=== PATIENT | female | born 1990 | race Caucasian/White ===

== ENCOUNTER → 2021-07-11 08:33 | Outpatient (CLI) | payer BC, SELFPAY ==
[2021-07-11 10:03] LABS: Add Manual Diff / Slide Review NO; Basophils Absolute Auto 0 /uL (0-100); Basophils Percent Auto 0.8 % (0-2); Eosinophils Absolute Auto 100 /uL (0-450); Eosinophils Percent Auto 2.1 % (2-4); Hematocrit 41.5 % (36-46); Hemoglobin 14.7 g/dL (12.0-16.0); Lymphocytes Absolute Auto 1700 /uL (1100-4500); Lymphocytes Percent Auto 39.8 % (25-40); Mean Corpuscular HGB Conc 35.4 % (30-36); Mean Corpuscular Hemoglobin 32.3 PG (26-34); Mean Corpuscular Volume 91.3 fL (80-100); Monocytes Absolute Auto 400 /uL (0-900); Monocytes Percent Auto 8.5 % (3-14); Neutrophils Absolute Auto 2000 /uL (1500-7000); Neutrophils Percent Auto 48.8 % (50-75); Platelet Count 217 X10^3/uL (150-400); Red Blood Cell Count 4.55 X10^6/uL (4.0-5.2); Red Cell Distribution Width 12.6 % (11.6-14.8); White Blood Cell Count 4.2 X10^3/uL (4.5-11.0)
[2021-07-11 10:25] LABS: Alanine Aminotransferase 19 IU/L (<35); Albumin 4.6 g/dL (3.5-5.0); Albumin Globulin Ratio 1.7 (1.0-2.8); Alkaline Phosphatase 54 U/L (38-126); Aspartate Aminotransferase 23 IU/L (14-36); BUN Creatinine Ratio 22.2 (6-22); Bilirubin Total 0.6 mg/dL (0.2-1.3); Blood Urea Nitrogen 16 mg/dL (7-17); Calcium 9.9 mg/dL (8.4-10.2); Carbon Dioxide 30 mmol/L (22-32); Chloride 103 mmol/L (98-107); Estimated Glomerular Filt Rate > 60.0 mL/min (>60); Globulin 2.7 g/dL (1.7-4.1); Glucose 92 mg/dL (70-100); HEMOLYSIS < 15 (0-50); Potassium 4.2 mmol/L (3.4-5.1); Sodium 139 mmol/L (137-145); Total Protein 7.3 g/dL (6.3-8.2)
[2021-07-11 10:47] LABS: TSH w/ Reflex to FT4 2.59 uIU/mL (0.47-4.68)
== END ==
PROVIDERS: PCP Family Medicine; Referring Provider Family Medicine; Visit Provider Family Medicine
DX: R59.9 Enlarged lymph nodes, unspecified (principal)
CPT/HCPCS: 36415; 80053; 84443; 85025

== ENCOUNTER 2022-09-23 16:53 | Emergency (ER) | payer BC, SELFPAY ==
[2022-09-23 17:05] VITALS: BP 134/78; PULSE 71; RESP 16; TEMP 36.4; O2SAT 98; BMI 22.4
--- NOTE | 2022-09-23 17:15 | DI.US.S_ITS ---
PROCEDURE: US OB <= 14 WEEKS FETUS INDICATIONS: ABDOMEN PAIN 6 WEEKS OUTSIDE/PRIOR DATING DATA: Last menstrual period (LMP): Not available. LMP-based estimated date of delivery (BATSHEVA): Not available e. TECHNIQUE: Real-time scanning was performed of the fetus and maternal pelvic organs, with image documentation. Endovaginal scanning was also performed to better visualize the fetus and maternal ovaries. COMPARISON: None. FINDINGS: Endometrium is thickened. There is a possible sac measuring 0.3 x 0.2 x 0.4 cm within the endometrial cavity. Maternal organs: Within the left ovary, there is a thick-walled cyst measuring 2.2 x 2.0 x 2.0 cm. Right ovary is unremarkable. IMPRESSION: 1. Thickened endometrium. There is a possible small gestation sac within the endometrial cavity. No pole. Please correlate with quantitative beta HCG. 2. A 2.2 x 2.0 x 2.0 cm cyst in the left ovary, most likely a corpus luteal cyst but ectopic cannot be excluded. Recommend clinical follow-up and imaging follow-up as clinically indicated. We strive to produce accurate, complete, and clear reports of imaging services. To assist us in improving patient care, this report was composed using standard report templates and voice recognition software. Therefore, it may contain abnormal punctuation, insertions and/or omissions. Occasional wrong-word or sound-alike substitutions may occur. Though we review the report and make efforts to correct it, we do recommend that the report be read carefully in proper context to recognize any text inaccuracies. Dictated by: Sachin Simpson M.D. on 09/23/2022 at 19:07 Approved by: Sachin Simpson M.D. on 09/23/2022 at 19:12
[2022-09-23 18:53] LABS: Add Manual Diff / Slide Review NO; Basophils Absolute Auto 0 /uL (0-100); Basophils Percent Auto 0.6 % (0-2); Eosinophils Absolute Auto 100 /uL (0-450); Hematocrit 41.3 % (36-46); Hemoglobin 14.4 g/dL (12.0-16.0); Lymphocytes Absolute Auto 2300 /uL (1100-4500); Lymphocytes Percent Auto 30.7 % (25-40); Mean Corpuscular HGB Conc 34.9 % (30-36); Mean Corpuscular Hemoglobin 31.9 PG (26-34); Mean Corpuscular Volume 91.4 fL (80-100); Monocytes Absolute Auto 700 /uL (0-900); Monocytes Percent Auto 8.9 % (3-14); Neutrophils Absolute Auto 4500 /uL (1500-7000); Neutrophils Percent Auto 58.8 % (50-75); Platelet Count 220 X10^3/uL (150-400); Red Blood Cell Count 4.52 X10^6/uL (4.0-5.2); Red Cell Distribution Width 12.6 % (11.6-14.8); White Blood Cell Count 7.6 X10^3/uL (4.5-11.0)
[2022-09-23 19:08] LABS: Alanine Aminotransferase 42 IU/L (<35); Albumin 4.7 g/dL (3.5-5.0); Albumin Globulin Ratio 1.6 (1.0-2.8); Alkaline Phosphatase 69 U/L (38-126); Aspartate Aminotransferase 29 IU/L (14-36); BUN Creatinine Ratio 20.6 (6-22); Bilirubin Total 0.3 mg/dL (0.2-1.3); Blood Urea Nitrogen 13 mg/dL (7-17); Calcium 9.2 mg/dL (8.4-10.2); Carbon Dioxide 27 mmol/L (22-32); Chloride 101 mmol/L (98-107); Estimated Glomerular Filt Rate > 60 mL/min (>60); Glucose 92 mg/dL (70-100); HEMOLYSIS < 15 (0-50); Potassium 4.1 mmol/L (3.4-5.1); Sodium 137 mmol/L (137-145); Total Protein 7.7 g/dL (6.3-8.2)
[2022-09-23 19:24] LABS: HCG Quantitative /Beta subunit 842.3 mIU/mL
--- NOTE | 2022-09-23 22:00 | ED_ITS ---
HPI - General Adult General Chief complaint: OB/Uterine Contractions Stated complaint: 6 WEEKS STOMACH PAIN HARDNESS SENT BY OB Time Seen by Provider: 09/23/22 21:43 Source: patient Mode of arrival: Family Vehicle Limitations: no limitations History of Present Illness HPI narrative: 32-year-old otherwise healthy at approximately 6 weeks EGA based on last menstrual period who is here for evaluation of stomach pain. She is not having any vaginal bleeding. No urinary symptoms. No change in bowel habits. She is yet to see OB during this . She would her initial positive test 2 weeks ago. No fevers. She was told to come to the emergency department after contacting an Ob Related Data Home Medications Medication Instructions Recorded Confirmed magnesium glycinate-mag oxide 240 mg PO .HS 09/19/22 09/19/22 prenat.vits,jeanmarie,vgs-svms-dskwe 1 tab PO DAILY 09/19/22 09/19/22 Allergies Allergy/AdvReac Type Severity Reaction Status Date / Time No Known Drug Allergies Allergy Unverified 09/23/22 17:08 Review of Systems Constitutional Constitutional: Reports system reviewed and no additional complaints, except as documented Cardiovascular Cardiovascular: Reports system reviewed and no additional complaints, except as documented Gastrointestinal Gastrointestinal: Reports system reviewed and no additional complaints, except as documented Genitourinary Genitourinary: Reports system reviewed and no additional complaints, except as documented Hematologic/Lymphatic On Anticoagulants: No Patient History Medical History Acne (~2006) Family history of breast cancer Painful menstrual periods (~2018) Surgical History (Updated 09/19/22 @ 14:12 by Augusta Ingram RN) Anesthesia History of breast lump/mass excision (~2016) [place] teeth extracted Family History (Updated 09/19/22 @ 14:15 by Augusta Ingram RN) Mother Skin cancer Grandfather Melanoma Grandmother Melanoma Breast cancer Grandmother Cancer Social History marital status: number of children: 0 household members: spouse lives independently: Yes caregiver/support person: No housing: house pets and animals: Yes (1 dog; aware of precautions) education level: college (associate's degree) occupational status: employed current occupational exposures/hazards: Yes (discussed precautions) special mauri needs: No travel history: recent (domestic only) seatbelt use: always helmet use: Yes water heater temp set < 120 deg: Yes working smoke detector in home: Yes fire extinguisher in home: No carbon monox detector in home: Yes firearms in home: No do you feel safe at home: Yes Smoking Status: Never smoker second hand exposure: No alcohol intake: former (2-4/week when not ) substance use type: does not use during the past year weight has: remained stable well-balanced diet: daily or most days daily servings fruits/ve or more times/day caffeine: No Type(s) of exercise: walking, bicycling, weight lifting, resistance training and running frequency: daily Smoking Status: Never smoker Substance Use Type: does not use Exam Initial Vital Signs Initial Vital Signs: Vital Signs Temperature 97.6 F 09/23/22 17:05 Pulse Rate 71 09/23/22 17:05 Respiratory Rate 16 09/23/22 17:05 Blood Pressure 134/78 09/23/22 17:05 Pulse Oximetry 98 09/23/22 17:05 Oxygen Delivery Method Room Air 09/23/22 17:05 Const General: cooperative HENMT Head: normal to inspection and normocephalic Resp Effort & Inspection: normal respiratory effort Cardio Rate: regular rate GI Inspection: non-distended Neuro General: patient alert, patient awake and moves all extremities Course Orders Ordered: ED Orders 09/23/22 17:15 US OB <= 14 weeks fetus Stat 09/23/22 18:40 ABO RH Type Stat Complete Blood Count AUTO DIFF Stat Comprehensive Metabolic Panel Stat HCG Quantitative /Beta subunit Stat Vital Signs Vital signs: Vital Signs - 8 hr 09/23/22 22:18 Pulse Rate 72 Respiratory Rate 16 Blood Pressure 133/76 Pulse Oximetry 99 Oxygen Delivery Method Room Air Medical Decision Making Medical Records Medical records reviewed: Yes I reviewed the patient's medical records. Lab Data Lab results reviewed: Yes I reviewed the patient's lab results. 09/23/22 18:40 09/23/22 18:40 Labs: Lab Results 09/23/22 09/23/22 09/23/22 Range/Units 18:40 18:40 18:40 WBC 7.6 (4.5-11.0) X10^3/uL RBC 4.52 (4.0-5.2) X10^6/uL Hgb 14.4 (12.0-16.0) g/dL Hct 41.3 (36-46) % MCV 91.4 (80-100) fL MCH 31.9 (26-34) PG MCHC 34.9 (30-36) % RDW 12.6 (11.6-14.8) % Plt Count 220 (150-400) X10^3/uL Neut % (Auto) 58.8 (50-75) % Lymph % (Auto) 30.7 (25-40) % [place] % (Auto) 8.9 (3-14) % Eos % (Auto) 1.0 L (2-4) % Baso % (Auto) 0.6 (0-2) % Neut # (Auto) 4500 (2533-6005) /uL Lymph # (Auto) 2300 (2251-0155) /uL [place] # (Auto) 700 (0-900) /uL Eos # (Auto) 100 (0-450) /uL Baso # (Auto) 0 (0-100) /uL Sodium 137 (137-145) mmol/L Potassium 4.1 (3.4-5.1) mmol/L Chloride 101 (98-107) mmol/L Carbon Dioxide 27 (22-32) mmol/L BUN 13 (7-17) mg/dL Creatinine 0.63 (0.52-1.04) mg/dL Estimated GFR > 60 (>60) mL/min BUN/Creatinine Ratio 20.6 (6-22) Glucose 92 (70-100) mg/dL Calcium 9.2 (8.4-10.2) mg/dL Total Bilirubin 0.3 (0.2-1.3) mg/dL AST 29 (14-36) IU/L ALT 42 H (<35) IU/L Alkaline Phosphatase 69 (38-126) U/L Total Protein 7.7 (6.3-8.2) g/dL Albumin 4.7 (3.5-5.0) g/dL Globulin 3.0 (1.7-4.1) g/dL Albumin/Globulin Ratio 1.6 (1.0-2.8) HCG, Quant 842.3 mIU/mL Blood Type O Negative Urine Dip Bedside Urine Glucose Negative Bedside Urine Bilirubin - Negative Bedside Urine Ketone - Negative Urine Specific [place] 1.015 Bedside Urine Occult Blood - Negative Bedside Urine pH 7.5 Bedside Urine Protein - Negative Bedside Urine Urobilinogen - Negative Bedside Urine Nitrite - Negative Bedside Urine Leukocytes - Negative Esterase Point of care testing: Urine Dip Bedside Urine Glucose Negative Bedside Urine Bilirubin - Negative Bedside Urine Ketone - Negative Urine Specific [place] 1.015 Bedside Urine Occult Blood - Negative Bedside Urine pH 7.5 Bedside Urine Protein - Negative Bedside Urine Urobilinogen - Negative Bedside Urine Nitrite - Negative Bedside Urine Leukocytes - Negative Esterase Imaging Data US - OB: Radiologist's Impression: PROCEDURE:? US OB <= 14 WEEKS FETUS ? INDICATIONS:? ABDOMEN PAIN 6 WEEKS ? OUTSIDE/PRIOR DATING DATA:? Last menstrual period (LMP):? Not available.? LMP-based estimated date of delivery (BATSHEVA):? Not available e.? ? TECHNIQUE:? Real-time scanning was performed of the fetus and maternal pelvic organs, with image documentation.? Endovaginal scanning was also performed to better visualize the fetus and maternal ovaries.? ? COMPARISON:? None. ? FINDINGS:? ? Endometrium is thickened.? There is a possible sac measuring 0.3 x 0.2 x 0.4 cm within the endometrial cavity. ? Maternal organs:? Within the left ovary, there is a thick-walled cyst measuring 2.2 x 2.0 x 2.0 cm.? Right ovary is unremarkable. ? ? IMPRESSION:? ? 1.? Thickened endometrium.? There is a possible small gestation sac within the endometrial cavity.? No pole.? Please correlate with quantitative beta HCG. 2. A 2.2 x 2.0 x 2.0 cm cyst in the left ovary, most likely a corpus luteal cyst but ectopic cannot be excluded.? Recommend clinical follow-up and imaging follow-up as clinically indicated. MDM Narrative Medical decision making narrative: Patient is Rh negative however is not having any vaginal bleeding today so we will hold on RhoGAM. Patient's hCG quantitative is in the mid 800s. The ultrasound does not show any definitive intrauterine which is not surprising given the quantitative results. I am concerned that she had a positive test 2 weeks ago and yet the quantitative level is only in the mid 800s today. I had a long discussion with the patient regarding her workup here in the emergency department. Informed. That we are unsure given her presentation today if she is early on in the and the quantitative level is increasing or if she is in the process of an incomplete miscarriage. Informed her that she needed a repeat lab draw in 48 hours. We also discussed the possibility of an ectopic given the lack of a definitive intrauterine seen on the ultrasound today. She was given specific return instructions for this. She is vitamins at home. She will contact the OB provider that she was going to see for this to see if she can get into have the repeat lab draw done through them or she can not she will return to the emergency department for this. Discharge Plan Departure Patient Disposition: Home Clinical Impression: Abdominal pain during Instructions: DI for -- Discomforts and Remedies Activity Restrictions/Additional Instructions: Based on your blood work and ultrasound today you do require a follow-up on T nelson. You can contact your OB provider for this or return to the emergency department. If prior to that your pain gets worse you develop fevers or your bleeding multiple pads an hour for multiple hours in a row you do need to return to the emergency department for further evaluation. Prescriptions: No Action prenat.vits,jeanmarie,dyf-xyye-whiki Tablet 1 tab PO DAILY magnesium glycinate-mag oxide 120 mg magnesium capsule 240 mg PO .HS Referrals: Nacho Guzman MD [Primary Care Provider] - Stand Alone Forms: Patient Portal/API
[2022-09-23 22:18] VITALS: BP 133/76; PULSE 72; RESP 16; O2SAT 99
== END 2022-09-23 22:18 | disposition home or self-care (01) ==
PROVIDERS: Emergency Medicine; Emergency Provider Emergency Medicine; PCP Family Medicine
DX: O26.891 Other specified pregnancy related conditions, first trimester (principal); R10.9 Unspecified abdominal pain; Z3A.01 Less than 8 weeks gestation of pregnancy
CPT/HCPCS: 76801; 80053; 81003; 84702; 85025; 86900; 86901; 99281; 99284

== ENCOUNTER → 2022-09-25 12:52 | Outpatient (CLI) | payer BC, SELFPAY ==
[2022-09-25 14:05] LABS: HCG Quantitative /Beta subunit 1073.4 mIU/mL
== END ==
PROVIDERS: PCP Family Medicine; Referring Provider Family Medicine; Visit Provider Family Medicine
DX: O26.899 Other specified pregnancy related conditions, unspecified trimester (principal); R10.9 Unspecified abdominal pain
CPT/HCPCS: 36415; 84702

== ENCOUNTER → 2022-09-27 07:24 | Outpatient (CLI) | payer BC, SELFPAY ==
[2022-09-27 10:49] LABS: HCG Quantitative /Beta subunit 1722.7 mIU/mL
--- NOTE | 2022-10-06 22:08 | PM.CALLCOV.1 ---
Call Coverage Note Note Date of Patient Contact: 10/06/22 Time of Patient Contact: 17:27 Narrative of Care Provided: Shayy called to report that she has been having heavy bleeding and cramping for about 2 hours. Has seen clots and tissue pass, believes she's having a miscarriage at 7w6d. Tearful discussing. Has a viability ultrasound scheduled for . Reports that she has Rh negative blood typing. Asked if it's okay to use tampons. IUP at 7w6d Active SAB Rh negative Review normal versus abnormal bleeding with miscarriage and when to return call to this provider giovanna MOLINAN. Recommend continuing with pads to prevent infection and monitor bleeding. Okay to take ibuprofen and acetaminophen for pain management; reviewed dosing. Recommend calling Dr. Olson's office in the morning to arrange Rhogam tomorrow and possibly blood draw for Hcg to allow follow up. Review recommendation for Rhogam within 72 hours of heavy bleeding. Review that Dr. Olson can help her determine if she should cancel 's ultrasound appointment. Provide emotional support and guidance about what to expect emotionally through grief.
== END ==
PROVIDERS: PCP Family Medicine; Referring Provider Family Medicine; Visit Provider Family Medicine
DX: O26.899 Other specified pregnancy related conditions, unspecified trimester (principal); R10.9 Unspecified abdominal pain
CPT/HCPCS: 36415; 84702

== ENCOUNTER → 2022-10-07 09:53 | Outpatient (CLI) | payer BC, SELFPAY ==
[2022-10-07 10:17] LABS: Add Manual Diff / Slide Review NO; Basophils Absolute Auto 100 /uL (0-100); Basophils Percent Auto 0.7 % (0-2); Eosinophils Absolute Auto 100 /uL (0-450); Eosinophils Percent Auto 0.8 % (2-4); Hemoglobin 13.8 g/dL (12.0-16.0); Lymphocytes Absolute Auto 1400 /uL (1100-4500); Lymphocytes Percent Auto 13.9 % (25-40); Mean Corpuscular HGB Conc 34.4 % (30-36); Mean Corpuscular Hemoglobin 31.6 PG (26-34); Mean Corpuscular Volume 91.9 fL (80-100); Monocytes Absolute Auto 700 /uL (0-900); Monocytes Percent Auto 7.3 % (3-14); Neutrophils Absolute Auto 7600 /uL (1500-7000); Neutrophils Percent Auto 77.3 % (50-75); Platelet Count 182 X10^3/uL (150-400); Red Blood Cell Count 4.36 X10^6/uL (4.0-5.2); Red Cell Distribution Width 12.8 % (11.6-14.8); White Blood Cell Count 9.8 X10^3/uL (4.5-11.0)
[2022-10-07 11:30] LABS: Hepatitis B Surface Antigen NEGATIVE s/c (NEGATIVE); Rubella Antibody IgG 82.1 IU/mL (>15)
[2022-10-07 11:31] LABS: HCG Quantitative /Beta subunit 2380.3 mIU/mL
[2022-10-07 11:45] LABS: HIV 1 & 2 Ab/Ag 4th Gen Combo NEGATIVE (NEGATIVE); Hep C Virus Ab w/Reflex Quant NEGATIVE s/c (NEGATIVE)
[2022-10-07 12:03] LABS: Appearance Urine UA CLOUDY; Bilirubin Urine UA 2+ (NEGATIVE); Color Urine UA RED; Glucose Urine UA NEGATIVE (Negative); Ketones Urine UA TRACE (NEGATIVE); Leukocyte Esterase Urine UA 2+ (NEGATIVE); Nitrite Urine UA POSITIVE (Negative); Occult Blood Urine UA 3+ (Negative); Protein Urine UA 3+ (Negative); Specific Gravity Urine UA 1.025 (1.000-1.035)
[2022-10-07 12:05] LABS: pH Urine UA 6.5 (4.5-8.0)
[2022-10-07 12:17] LABS: Ictotest Urine Negative (Negative); RBC Urine 10-30/HPF (0-5/HPF); Squamous Epithelial Cell Urine 5-10 /HPF (0-5/HPF); WBC Urine 5-10/HPF (0-5/HPF)
[2022-10-07 12:18] LABS: Bacteria Urine Occasional (0-1)
[2022-10-08 11:57] LABS: Varicella IgG Antibody 3358 index (Immune >165)
[2022-10-09 05:45] LABS: RPR Screen Non Reactive (Non Reactive)
== END ==
PROVIDERS: PCP Family Medicine; Referring Provider Family Medicine; Visit Provider Family Medicine
DX: O26.899 Other specified pregnancy related conditions, unspecified trimester (principal); R10.9 Unspecified abdominal pain
CPT/HCPCS: 36415; 80055; 81003; 81015; 84702; 86787; 86803; 86850; 86900; 86901; 87086; 87389

== ENCOUNTER → 2022-10-07 13:30 | Outpatient (CLI) | payer BC, SELFPAY ==
--- NOTE | 2022-10-07 13:31 | DI.US.S_ITS ---
PROCEDURE: US PELVIC COMPLETE INDICATIONS: PAIN AND BLEEDING. ?MISCARRIAGE TECHNIQUE: Real-time scanning was performed of the pelvic organs, with image documentation. Additional endovaginal scanning was necessary due to incomplete visualization of the adnexal and endometrial structures by transabdominal scanning. COMPARISON: None. FINDINGS: Uterus: Uterus is anteverted and normal in size at 8.8 x 6.5 x 4.6 cm. The myometrium is homogeneous. The endometrium measures 18 mm combined thickness. Endometrium is heterogeneous. There is no increased vascularity. No visualized intrauterine . Mild fluid is in the endocervical canal. Ovaries: The right ovary measures 2.8 x 1.2 x 1.0 cm. The left ovary measures 3.1 x 1.9 x 1.9 cm. The ovaries have a normal sonographic appearance. Possible left ovarian corpus luteal cyst. Other: No pathologic free abdominal or pelvic fluid. IMPRESSION: Heterogeneous thickened endometrium as well as fluid in the endocervical canal. There is no associated increased vascularity to suggest retained products of conception or potentially infection. Recommend correlation to beta HCG levels, as missed cannot be excluded. We strive to produce accurate, complete, and clear reports of imaging services. To assist us in improving patient care, this report was composed using standard report templates and voice recognition software. Therefore, it may contain abnormal punctuation, insertions and/or omissions. Occasional wrong-word or sound-alike substitutions may occur. Though we review the report and make efforts to correct it, we do recommend that the report be read carefully in proper context to recognize any text inaccuracies. Dictated by: Felicity Peña M.D. on 10/07/2022 at 14:51 Approved by: Felicity Peña M.D. on 10/07/2022 at 14:53
== END ==
PROVIDERS: PCP Family Medicine; Referring Provider Family Medicine; Visit Provider Family Medicine
DX: O46.90 Antepartum hemorrhage, unspecified, unspecified trimester (principal); O26.899 Other specified pregnancy related conditions, unspecified trimester; R10.9 Unspecified abdominal pain
CPT/HCPCS: 36415; 76830; 76856; 80055; 81003; 81015; 84702; 86787; 86803; 86850; 86900; 86901; 87086; 87389

== ENCOUNTER → 2022-10-21 09:56 | Outpatient (CLI) | payer BC, SELFPAY | PROVIDERS: PCP Family Medicine; Referring Provider Family Medicine; Visit Provider Family Medicine | DX: O03.9 Complete or unspecified spontaneous abortion without complication (principal) | CPT/HCPCS: 36415; 84702 ==

== ENCOUNTER → 2022-10-30 12:29 | Outpatient (CLI) | payer BC, SELFPAY ==
--- NOTE | 2022-10-30 12:32 | DI.US.S_ITS ---
PROCEDURE: US PELVIC COMPLETE INDICATIONS: s/p miscarriage, heavy vaginal bleeding TECHNIQUE: Real-time scanning was performed of the pelvic organs, with image documentation. Additional endovaginal scanning was necessary due to incomplete visualization of the adnexal and endometrial structures by transabdominal scanning. COMPARISON: [facility], US, US PELVIC COMPLETE, 10/07/2022, 13:38. FINDINGS: Uterus: Uterus is anteverted and normal in size at 8.1 x 4.3 x 5.6 cm. The myometrium is homogeneous. The endometrium measures 16 mm combined thickness. Within the lower uterine segment, there is an endometrial focus that demonstrates increased vascularity. Ovaries: The right ovary measures 1.6 x 2.7 x 2.1 cm, with a calculated ovarian volume of 4.6 cc. The right ovary demonstrates a complex cyst without abnormal vascularity that measures up to 16 mm. The left ovary measures 2.8 x 1.9 x 1.1 cm, with a calculated ovarian volume of 3.2 cc. Less than 12 follicles can be seen in each ovary. No adnexal masses are seen. Other: A moderate amount of free pelvic fluid can be seen, approximately 7 cc. Low level echoes can be seen within it. IMPRESSION: Within the lower uterine segment, there is a focus of increased vascularity, which is highly suspicious for retained products of conception, given the patient history. More superiorly, the endometrial stripe measures up to 16 mm, which is near the upper limits of normal. A moderate amount of free pelvic fluid can be seen within the pelvis, likely related to hemorrhagic/complex fluid. There is a 1.6 cm complex cyst seen involving the right ovary, which may be related to a corpus luteum. If it would be clinically appropriate, a followup pelvic ultrasound could be considered in 6 weeks to assure resolution/ improvement. We strive to produce accurate, complete, and clear reports of imaging services. To assist us in improving patient care, this report was composed using standard report templates and voice recognition software. Therefore, it may contain abnormal punctuation, insertions and/or omissions. Occasional wrong-word or sound-alike substitutions may occur. Though we review the report and make efforts to correct it, we do recommend that the report be read carefully in proper context to recognize any text inaccuracies. Dictated by: Allan Glass M.D. on 10/30/2022 at 13:04 Approved by: Allan Glass M.D. on 10/30/2022 at 13:06
[2022-10-30 13:19] LABS: Add Manual Diff / Slide Review NO; Basophils Absolute Auto 0 /uL (0-100); Basophils Percent Auto 0.1 % (0-2); Eosinophils Absolute Auto 0 /uL (0-450); Hematocrit 36.6 % (36-46); Hemoglobin 12.9 g/dL (12.0-16.0); Lymphocytes Absolute Auto 600 /uL (1100-4500); Lymphocytes Percent Auto 3.6 % (25-40); Mean Corpuscular HGB Conc 35.2 % (30-36); Mean Corpuscular Hemoglobin 31.7 PG (26-34); Mean Corpuscular Volume 90.3 fL (80-100); Monocytes Absolute Auto 800 /uL (0-900); Monocytes Percent Auto 5.3 % (3-14); Neutrophils Absolute Auto 14200 /uL (1500-7000); Platelet Count 182 X10^3/uL (150-400); Red Blood Cell Count 4.06 X10^6/uL (4.0-5.2); Red Cell Distribution Width 12.9 % (11.6-14.8); White Blood Cell Count 15.6 X10^3/uL (4.5-11.0)
[2022-10-30 13:54] LABS: HCG Quantitative /Beta subunit < 2.4 mIU/mL
== END ==
PROVIDERS: PCP Family Medicine; Referring Provider Family Medicine; Visit Provider Family Medicine
DX: O03.6 Delayed or excessive hemorrhage following complete or unspecified spontaneous abortion (principal); N83.291 Other ovarian cyst, right side
CPT/HCPCS: 36415; 76830; 76856; 84702; 85025

== ENCOUNTER 2022-10-30 15:12 | Day surgery (SDC) | payer BC, SELFPAY ==
[2022-10-30] VITALS (7 sets, daily range): BP systolic 105–118; BP diastolic 54–69; PULSE 76–90; RESP 12–18; TEMP 36.9–37.7; O2SAT 98–100; BMI 22.9
--- NOTE | 2022-10-30 | PATH_ITS ---
[facility] Accession Number: [id number] No. of containers..01 Tissue . 01 Material submitted: . product of conception - PRODUCTS OF CONCEPTION . 01 Diagnosis: Uterine Contents: Secretory-type endometrium, partially autolyzed. Chorionic villi or tissue not identified. MRV 11/08/2022 1508 Local . 01 Comment: Chorionic villi or tissue are not identified, although this tissue may have been removed prior to fixation for cytogenetic testing. . 01 Electronically signed: . Guerita Garcia MD, Pathologist NPI- [id number] . 01 Gross description: . The specimen is received in Hanks' Balanced Salt Solution and subsequently placed in formalin following cytogenetics, labeled with the patient's name, , and products of conception, and consists of multiple red-angel spongy soft tissue fragments aggregating to 2.8 x 2.6 x 0.8 cm. No tissue is identified, and the specimen is submitted entirely in cassettes A1-A3. ([id number]) /MRV 11/06/2022 1828 Local . 01 Pathologist provided ICD-10: O03.9 . 01 CPT . 167980 Specimen Comment: A courtesy copy of this report has been sent to [phone] Performed at: 01 [facility] [address] [place] [address] [address], [place], [place] [id number] MD Sivakumar Vidal MD Phone: [phone]
[2022-10-30] MEDS: LACTATED RINGERS 1,000 ML 100 ML IV (15:52)
--- NOTE | 2022-10-30 16:43 | PM.GYNHP.1 ---
History of Present Illness History of Present Illness Reason for admission: vaginal bleeding and incomplete Narrative: Shayy Selby is a 32 year old female with an incomplete She presents for a suction D&C. She has continued to have heavy vaginal bleeding. She is changing a diva [facility] Medical History Acne (~2006) Family history of breast cancer Painful menstrual periods (~2017) Surgical History (Updated 09/19/22 @ 14:12 by Augusta Ingram RN) Anesthesia History of breast lump/mass excision (~2015) [place] teeth extracted Family History (Updated 09/19/22 @ 14:15 by Augusta Ingram RN) Mother Skin cancer Grandfather Melanoma Grandmother Melanoma Breast cancer Grandmother Cancer Social History marital status: number of children: 0 household members: spouse lives independently: Yes caregiver/support person: No housing: house pets and animals: Yes (1 dog; aware of precautions) education level: college (associate's degree) occupational status: employed current occupational exposures/hazards: Yes (discussed precautions) special mauri needs: No travel history: recent (domestic only) seatbelt use: always helmet use: Yes water heater temp set < 120 deg: Yes working smoke detector in home: Yes fire extinguisher in home: No carbon monox detector in home: Yes firearms in home: No do you feel safe at home: Yes Smoking Status: Never smoker second hand exposure: No alcohol intake: current substance use type: does not use during the past year weight has: remained stable well-balanced diet: daily or most days daily servings fruits/ve or more times/day caffeine: No Type(s) of exercise: walking, bicycling, weight lifting, resistance training and running frequency: daily Meds Home Medications and Allergies Home Medications Medication Instructions Recorded Confirmed Type magnesium glycinate-mag oxide 240 mg PO .HS 09/19/22 10/30/22 History prenat.vits,jeanmarie,njz-vdos-dnjwo 1 tab PO DAILY 09/19/22 10/30/22 History oxycodone 5 mg tablet 5 mg PO Q8H PRN pain #10 tabs 10/07/22 10/30/22 Rx Allergies Allergy/AdvReac Type Severity Reaction Status Date / Time No Known Drug Allergies Allergy Unverified 10/30/22 11:57 Exam Vital Signs (past 8 hours): - 10/30/22 15:53 Temperature 98.5 F Pulse Rate 81 Respiratory Rate 18 Blood Pressure 118/69 Pulse Oximetry 100 Oxygen Delivery Method Room Air Oxygen Delivery Method Room Air Narrative Exam Narrative: HEENT: No thyromegaly, no anterior cervical or supraclavicular lymphadenopathy. Lungs:Clear to auscultation bilaterally, no wheezes. Cardiovascular: Regular rate and rhythm, no murmurs, rubs, or gallops. Abdomen: No scars. No hepatosplenomegaly. No masses palpable. External genitalia: Normal Vagina: Normal Cervix: Normal Bimanual exam: 8 Week size uterus. Mobile. No adnexal masses or tenderness Assessment & Plan Assessment & Plan narrative: Assessment: 32-year-old 1 para 0 with an incomplete at 8 weeks' gestation Rh negative, received RhoGAM 2 weeks ago Plan: Suction D&C The risks, benefits, and alternatives to the procedure were explained to the patient. The risks including bleeding, infection, and uterine perforation. She understands these risks and agrees to proceed. A full par Q was held and consent form was signed. Time Spent With Patient Time with patient: less than 30 minutes
--- NOTE | 2022-10-30 16:46 | PM.PREOP ---
Pre-operative Note COVID-19 Criteria for continued procedure: Non-surgical alternatives not available or appropriate per current SOC Interval Note History & Physical reviewed/Exam performed by Physician: Yes Changes to H&P: No H&P completed within 30 days and has changed as indicated here:: 10/30/22
--- NOTE | 2022-10-30 17:15 | SUR.OPER ---
Lithotomy on padded OR bed, head on pillow, arms secured on padded arm boards at <90 degrees abduction. Legs secured in padded yellow fins stirrups.
--- NOTE | 2022-10-30 17:37 | PM.GYNOP.1 ---
Operative Date/Time/Diagnoses Date of procedure: 10/30/22 Time of procedure: 17:37 Pre-op diagnosis: Incomplete miscarriage Post-op diagnosis: same Procedure & Clinicians Procedure: Procedures Operation Date: 10/30/22 17:45 Actual Procedure Side Surgeon p Suction Dilation and Curettage Not Applicable Gaby Saezn MD Indications: Incomplete miscarriage Continued heavy vaginal bleeding Surgeon: Gaby Saenz Anesthesia Type: General (LMA) Operative Notes Findings: 8 week size anteverted uterus Large amount of products conception remaining Closure Type: not applicable Specimen(s): products of conception Estimated blood loss (mL): 50 Blood products transfused: none Procedure in detail: After informed consent was obtained, the patient was taken to the operating room where she was placed in the dorsal supine position. After adequate LMA general anesthesia was achieved, she was placed in the dorsal lithotomy position, and prepped and draped in the usual sterile fashion. A time-out was performed. A bivalve speculum was placed into the vagina and the anterior lip of the cervix was grasped with a single-tooth tenaculum. The cervical os was sequentially dilated until the # 8 Hegar dilator could pass easily into the endometrial cavity. Several passes with suction revealed a large amount of tissue. The suction curette was removed. Gentle sharp curettage was performed yielding minimal amount of tissue. Several more passes with suction revealed blood only. The instruments were removed from the uterus. The single-tooth tenaculum was removed from the anterior lip of the cervix. The bivalve speculum was removed from the vagina. Sponge, lap, and instrument counts were correct x2. The patient tolerated the procedure well, and was taken to PACU in stable condition. Complications: none Post-operative Condition: stable Disposition: PACU Plan for aftercare: Home after recovery
== END 2022-10-30 18:05 | disposition home or self-care (01) ==
PROVIDERS: PCP Family Medicine; Referring Provider Obstetrics & Gynecology; Visit Provider Obstetrics & Gynecology
PROC: (CPT 58120; principal; 2022-10-30 17:45)
DX: O03.1 Delayed or excessive hemorrhage following incomplete spontaneous abortion (principal); Z3A.08 8 weeks gestation of pregnancy; N83.291 Other ovarian cyst, right side
CPT/HCPCS: 59812; 36415; 76830; 76856; 84702; 85025; J1100; J1885; J2250; J2405; J2704; J3010